=== PATIENT | male | born 1990 | race Hispanic/Latino ===

== ENCOUNTER 2023-06-20 08:02 | Outpatient (CLI) | payer BC | END 2023-06-20 08:03 | disposition home or self-care (01) | LOC: CSHULT 08:02 | PROVIDERS: ATTEND Nurse Practitioner Family | DX: R74.01 Elevation of levels of liver transaminase levels (principal); K76.0 Fatty (change of) liver, not elsewhere classified | CPT/HCPCS: 76705 ==